=== PATIENT | female | born 1990 | race Asian ===

== ENCOUNTER 2021-10-27 13:05 | Emergency (ER) | payer BC ==
[~2021-10-27] VITALS: Ht 160 cm; Wt 71.2 kg
[2021-10-27 13:48] VITALS: BP 114/73
[2021-10-27] MEDS ORDERED: LEXAPRO 10 MG T10 M1 PO (13:50)
--- NOTE | 2021-10-27 21:23 | NUR ---
PATIENT CALLED AT 2101 AT [phone] TO GIVE POSITIVE COVID RESULTS. MESSAGE LEFT FOR A RETURN CALL TO THIS ER.
--- NOTE | 2021-10-27 23:54 | NUR ---
[facility] CALLED CRITICAL RESULT TO THIS PATTERNMAKER SAMPLE @ 2015, 10/27/21. RESULT- COVID POSITIVE.
--- NOTE | 2021-10-28 05:15 | NUR ---
PT CALLED RE COVID TEST RESULTS. INFORMED PT THAT HER COIVD TEST WAS POSITIVE. PROVIDED EDUCATION REGARDING QUARANTINE AND HOME TREATMENT OF SYMPTOMS. S&S TO RETURN TO ER. PT INQUIRED ABOUT HER CHILDREN AT HOME WITH HER, RECOMENDED PT CALL THEIR BRAKE RELINER IN THE AM. WILL PRINT OUT TEST RESULTS AND WORK NOTE FOR PT TO GEOTHERMAL HVAC TECHNICIAN.
== END 2021-10-27 14:36 | disposition home or self-care (01) ==
LOC: ER 13:05
PROVIDERS: Nurse Practitioner
DX: U07.1 COVID-19 (principal); J02.9 Acute pharyngitis, unspecified; Z79.899 Other long term (current) drug therapy

== ENCOUNTER 2021-11-03 21:27 | Inpatient (IN) | payer BC ==
[~2021-11-03] VITALS: Ht 160 cm; Wt 70.8 kg
[~2021-11-03 21:27] MED LIST: LEXAPRO 10 MG T10 M1 PO
[2021-11-03 21:40] VITALS: BP 86/65
[2021-11-03 22:26] LABS: ABSOLUTE NEUTROPHILS 4.4 thou/uL (1.4-8.2); BASOPHILS 0.6 % (0.0-2.0); EOSINOPHILS 0.1 % (0.0-3.0); HEMATOCRIT 46.3 % (37.0-47.0); HEMOGLOBIN 15.6 gm/dL (12.0-15.0); LYMPHOCYTES 24.6 % (24.0-44.0); MCH 31.5 pg (26.0-34.0); MCHC 33.6 g/dL (28.0-37.0); MCV 93.8 fL (80.0-100.0); MONOCYTES 8.4 % (1.0-8.0); PLATELET COUNT 199 thou/uL (150-400); POLYS 66.3 % (36.0-66.0); RBC 4.94 mil/uL (4.20-5.00); RDW 12.5 % (10.5-14.5); WBC 6.7 thou/uL (4.0-11.0)
[2021-11-03 22:36] LABS: CALCIUM 9.1 mg/dL (8.5-10.1); CREATININE 1.1 mg/dL (0.6-1.0); POTASSIUM 3.5 mmol/L (3.5-5.1)
[2021-11-03 22:40] LABS: APTT 29.9 Seconds (24.5-32.8); INR 0.99; PROTIME 10.8 Seconds (10.5-12.1)
[2021-11-03 22:46] LABS: ALBUMIN 3.9 g/dL (3.4-5.0); TOTAL BILIRUBIN 0.4 mg/dL (0.2-1.0); TOTAL PROTEIN 8.9 g/dL (6.4-8.2)
[2021-11-04 02:55] LABS: HEMATOCRIT 36.4 % (37.0-47.0); MCH 31.5 pg (26.0-34.0); MCHC 33.9 g/dL (28.0-37.0); MCV 92.8 fL (80.0-100.0); RBC 3.92 mil/uL (4.20-5.00); RDW 12.1 % (10.5-14.5); WBC 4.6 thou/uL (4.0-11.0)
[2021-11-04 03:05] LABS: HEMOGLOBIN 12.3 gm/dL (12.0-15.0)
[2021-11-04 03:48] LABS: CALCIUM 7.6 mg/dL (8.5-10.1); CREATININE 0.8 mg/dL (0.6-1.0); POTASSIUM 4.2 mmol/L (3.5-5.1)
--- NOTE | 2021-11-04 08:51 | EKG ---
[address] [address] ELECTROCARDIOGRAM REPORT Name: SIMI CHISHOLM Room #: 170-7 ADM IN M.R.#: [id number] Admission: 11/03/21 Attend Phys: Vinita Lewis MD Discharge: Date of : 89 Report #: [id number] [facility] ED Test Date: 2021-11-03 Test Time: 22:33:09 Pat Name: SIMI CHISHOLM Department: Room: 170 Gender: F Frozen Pie Maker: demetrio : 1990 Requested By: Mumtaz Nuñez Order Number: [id number] MD: Adria Evans Measurements Intervals Pegram Rate: 135 P: 43 FL: 130 QRS: 58 QRSD: 66 T: 4 QT: 272 QTc: 408 Interpretive Statements Sinus tachycardia No previous ECG available for comparison Electronically Signed On 11-04-2021 8:51:33 [employer] INST[employer]ER by Adria Evans [email or web address] <ELECTRONICALLY SIGNED> By: Adria Evans MD, [facility] 11/04/21 0851 [id number] Adria Evans MD, FACC /EPI
[2021-11-04 09:46] LABS: URINE BILIRUBIN NEGATIVE (Negative); URINE BLOOD TRACE (Negative); URINE CLARITY CLEAR; URINE COLOR YELLOW; URINE GLUCOSE-RANDOM* NEGATIVE (Negative); URINE KETONES TRACE (Negative); URINE LEUKOCYTES-REFLEX NEGATIVE (Negative); URINE NITRITE-REFLEX NEGATIVE (Negative); URINE PROTEIN (DIPSTICK) NEGATIVE (Negative); URINE SPECIFIC GRAVITY 1.025 (1.005-1.035); URINE UROBILINOGEN 0.2 E.U./dl (0.2-1.0)
[2021-11-04 09:51] LABS: ICTOTEST (BILI CONFIRMATORY) Negative (Negative)
[2021-11-04 11:30] VITALS: BP 140/80
[2021-11-04 16:30] VITALS: BP 110/43
[2021-11-04 21:30] VITALS: BP 108/75
[2021-11-04 23:01] VITALS: BP 108/68
--- NOTE | 2021-11-05 03:12 | NUR ---
ADMISSION: PT ARRIVED ON UNIT AT APPROX 2130. PT IS ALERT & ORIENTED X 4 AND IS CALM AND COOPERATIVE. CURRENTLY ON RA AND O2 SATS ARE 95-97%. VSS AFEBRILE. PT HAD SOME MILD PAIN AND HAD C/O OF NAUSEA. ADMINISTERED PAIN AND ANTIEMETICS PRN. SBA TO BSC. SHE HAS DIZZINESS WHEN GETTING UP. PT IS ABLE TO MAKE NEEDS KNOWN. IV ABX & FLUIDS RUNNING. CARE PLAN IN PLACE AND INTERVENTIONS SET. WILL CONTINUE TO MONITOR.
[2021-11-05 04:34] VITALS: BP 97/69
[2021-11-05 05:40] LABS: ALBUMIN 2.6 g/dL (3.4-5.0); ANION GAP 10 mmol/L (7-16); BUN 9 mg/dL (7-18); CALCIUM 7.4 mg/dL (8.5-10.1); CHLORIDE 110 mmol/L (98-107); CO2 23 mmol/L (21-32); CREATININE 0.7 mg/dL (0.6-1.0); DIRECT BILIRUBIN < 0.1 mg/dL (<0.1-0.2); GLUCOSE 106 mg/dL (74-106); PHOSPHORUS 3.3 mg/dL (2.5-4.9); POTASSIUM 3.5 mmol/L (3.5-5.1); SGOT 20 U/L (15-37); SGPT 17 U/L (30-65); SODIUM 143 mmol/L (136-145); TOTAL BILIRUBIN 0.3 mg/dL (0.2-1.0)
[2021-11-05 08:00] VITALS: BP 99/64
[2021-11-05 11:21] VITALS: BP 99/67
--- NOTE | 2021-11-05 11:48 | HC ---
[facility] [place] [address] CONSULTATION Name: SIMI CHISHOLM Room #: 354-P ADM IN M.R.#: [id number] Admission: 11/03/21 Attend Phys: Wenceslao Arroyo MD Discharge: Date of : 89 Report #: [id number] THIS REPORT FOR: cc: NO FAMILY PHYSICIAN or PCP NO FAMILY PHYSICIAN or PCP David Sullivan MD ~ DATE OF SERVICE: 11/04/2021 INFECTIOUS DISEASE CONSULTATION ATTENDING PHYSICIAN: Dr. Lewis. REASON FOR EVALUATION: COVID-19, complicated by pneumonitis. HISTORY OF PRESENT ILLNESS: Chart reviewed. The patient examined. This is a 30-year-old woman with history of anxiety, depression, who apparently has been ill for a number of days. She tested positive for COVID-19 on 10/27/2021 and had significant difficulty until latter part of last week, developed some increasing cough and dyspnea at times. Subsequently, developed some nausea, emesis, and diarrhea, in spite of her efforts to drink fluids she was unable to that prompted her presentation to the Emergency Room. Initial CBC was unremarkable. Negative test. Elevated lactic acid at 2.4 initially. Procalcitonin 0.05. Chest x-ray showed bilateral infiltrates consistent with COVID pneumonitis. Blood cultures collected at time of admission are sterile thus far. Urinalysis was generally unremarkable. She had initial temperature of 104, pulse of 151, blood pressure of 86/65. She was resuscitated. Vitals are much improved with a pulse of 73 and blood pressure of 140/80. She was treated with azithromycin, ceftriaxone, and given corticosteroids. Currently, she is not requiring supplemental oxygen. Ceftriaxone and azithromycin. PAST MEDICAL HISTORY: Anxiety and depression. SOCIAL HISTORY: Has 2 children. Nonsmoker, no ethanol, no illicit drug use. FAMILY HISTORY: Noncontributory. REVIEW OF SYSTEMS: Otherwise, unremarkable. PHYSICAL EXAMINATION: GENERAL: Alert, cooperative. She is in mild to moderate distress. She is generally lucid. VITAL SIGNS: Temperature most recently 100.5, pulse 73, respirations 30, blood pressure 140/80. SKIN: Warm, dry, no rashes. HEENT: Normocephalic. Extraocular muscles intact. NECK: Supple. [facility] [address] [place] [address] CONSULTATION Name: SIMI CHISHOLM Room #: [address] [place] [address] IN M.R.#: [id number] Admission: 11/03/21 Attend Phys: Wenceslao Arroyo MD Discharge: Date of : 89 Report #: [id number] LUNGS: Few scattered coarse breath sounds at the bases. HEART: Regular. I do not appreciate any murmur. ABDOMEN: Soft, nontender. EXTREMITIES: No cyanosis or edema. GENITOURINARY AND RECTAL: Deferred. LABORATORY DATA: Urinalysis is unremarkable. Blood cultures sterile thus far. Electrolytes: Sodium 142, potassium 4.2, chloride 108, bicarbonate is 22, anion gap of 12, BUN and creatinine 12 and 0.8. Estimated GFR of 85. Lactic acid 0.8. CBC: White count of 4.6, H and H 12.3 and 36.4, platelets of 149. ASSESSMENT AND PLAN: COVID-19 infection, complicated by pneumonitis. At this point, she has marginal saturations, otherwise not required supplemental oxygen. She has quite high-grade fevers, may be indicative of a superinfection with a secondary bacterial pneumonitis. We will continue empiric antibiotics, ceftriaxone and azithromycin. I think it is reasonable to start remdesivir given the tenuous nature of her situation. There is no particular contraindication in addition to corticosteroids and vitamins. She may not need a full 5-day course. We will see how she does over the course of the next 2-3 days. <ELECTRONICALLY SIGNED> By: David Sullivan MD 11/05/21 1148 [id number] [id number] David Sullivan MD /nt
[2021-11-05 16:29] VITALS: BP 105/68
--- NOTE | 2021-11-05 17:06 | NUR ---
PT ADMITTED RELATED COVID-19, HYPOTENSION, AND PNEUMONIA. CM REVIEWED CHART AND SPOKE WITH CARE TEAM. CM SPOKE TO PT THIS DAY VIA PHONE R/T ENHANCED ISOLATION. CM ROLE INTRODUCED. CLARIFIED PHONE NUMBER FOR LATRICIA GOMEZ [phone]. PT REPORTS COMMERCIAL REAL ESTATE MANAGER SHE WAS LIVING AT HOME WTIH 2 KIDS IN AN APARTMENT. SHE REPORTS COMMERCIAL REAL ESTATE MANAGER BEING INDEPENDENT WITH ALL MOBILITY AND ADLS. GOAL IS TO RETURN HOME ONCE MEDICALLY STABLE. NO CONCERNS WITH NEEDS VOICED ONCE DISCHARGE AT THIS TIME. WILL FOLLOW THROUGH STAY AND ARRANGE IF INDICATED. CM FOLLOWING REGARDING DC PLANNING.
[2021-11-05 19:26] VITALS: BP 110/55
--- NOTE | 2021-11-05 19:36 | NUR ---
RN ASSUMED PT'S CARE AT 0700-1900PM, PT IS A&OX4, PT IS ON ROOM AIR, PT'S VS ARE STABLE, PT'S N/V HAS IMPROVED, BUT PT STILL HAS DIARRHEA , PT IS CONTINUING IV FLUID AND ABX, PT DENIES PAIN AT DAY SHIFT.
--- NOTE | 2021-11-05 23:39 | NUR ---
PROGRESS PT A/O X4. UP AD JERSON TO BSC. LUNGS CLEAR BUT DIMINISHED, OCCASIONAL NON-PRODUCTIVE COUGH NOTED. PT REPORTS NAUSEA SUBSIDING, DIARRHEA CONTINUES HAD A FEW STOOLS DURING DAY IMMODIUM GIVEN WITH EVENING MEDS. HAD A SNACK OF ICE CREAM AND JEZ CRACKERS TOLERATED WELL. IV ANTIBIOTICS ADMINISTERED ORDERED CONTINUE POC.
[2021-11-06 02:45] VITALS: BP 91/51
[2021-11-06 07:06] LABS: ALBUMIN 2.4 g/dL (3.4-5.0); ANION GAP 11 mmol/L (7-16); BUN 11 mg/dL (7-18); CALCIUM 7.3 mg/dL (8.5-10.1); CHLORIDE 111 mmol/L (98-107); CO2 22 mmol/L (21-32); CREATININE 0.6 mg/dL (0.6-1.0); DIRECT BILIRUBIN < 0.1 mg/dL (<0.1-0.2); GLUCOSE 93 mg/dL (74-106); PHOSPHORUS 3.1 mg/dL (2.6-4.7); SGOT 17 U/L (15-37); SGPT 18 U/L (14-59); SODIUM 144 mmol/L (136-145); TOTAL BILIRUBIN 0.2 mg/dL (0.2-1.0); TOTAL PROTEIN 5.6 g/dL (6.4-8.2)
[2021-11-06 07:50] VITALS: BP 97/62
[2021-11-06 11:22] VITALS: BP 92/60
[2021-11-06 15:35] VITALS: BP 93/58
--- NOTE | 2021-11-06 19:42 | NUR ---
RN ASSUMED PT'S CARE AT 0700-1900PM, PT IS A&OX4, PT IS ON ROOM AIR, PT'S VS ARE STABLE, PT 'S N/V AND DIARRHEA HAVE IMPROVED.
[2021-11-06 20:19] VITALS: BP 101/65
[2021-11-07 04:13] VITALS: BP 103/75
[2021-11-07 05:06] LABS: ALBUMIN 2.6 g/dL (3.4-5.0); ANION GAP 8 mmol/L (7-16); BUN 12 mg/dL (7-18); CALCIUM 7.7 mg/dL (8.5-10.1); CHLORIDE 110 mmol/L (98-107); CO2 25 mmol/L (21-32); CREATININE 0.7 mg/dL (0.6-1.0); DIRECT BILIRUBIN < 0.1 mg/dL (<0.1-0.2); GLUCOSE 101 mg/dL (74-106); PHOSPHORUS 3.1 mg/dL (2.6-4.7); POTASSIUM 3.7 mmol/L (3.5-5.1); SGOT 22 U/L (15-37); SGPT 23 U/L (14-59); SODIUM 143 mmol/L (136-145); TOTAL BILIRUBIN 0.3 mg/dL (0.2-1.0)
--- NOTE | 2021-11-07 05:36 | NUR ---
PROGRESS PT A/O X4, UP AD JERSON VSS. LUNGS CLEAR AND PT ON ROOM AIR. DENIES PAIN. VOIDING QS AND NAUSEA, VOMITING AND DIARRHEA RESOLVED NO EPISODES THIS SHIFT. IVF'S CONTINUE PT TOLERATING DIET PT HOES TO DC HOME TODAY.
[2021-11-07 07:24] VITALS: BP 76/58
[2021-11-07] MEDS ORDERED: PREDNISONE 20 M20 M1 PO (10:12)
[2021-11-07] MEDS ORDERED: MUCINEX600 MG PO (10:12)
[2021-11-07] MEDS ORDERED: LOPERAMIDE 2 MG2 M1 PO (10:12)
[2021-11-07] MEDS ORDERED: VITAMIN D325 MC2 PO (10:12)
[2021-11-07 15:07] VITALS: BP 76/58
--- NOTE | 2021-11-07 15:56 | NUR ---
RN ASSUMED PT'S CARE AT 0700AM, PT IS A&OX4, PT 'S N/V AND DIARRHEA HAVE IMOROVED, PT'S VS ARE STABLE, PT IS CONTINUNG TREATING COVID MEDICATIONS, PT GETS UP TO BATH ROOM WITHOUT ASSIST, PT DENIES PAIN AND SOB, RN RECEIVED ORDER TO DC PT TODAY, PT 'S FRIEND WILL MANDARIN CHINESE TEACHER PT TO HOME ABOUT 1800PM.
--- NOTE | 2021-11-07 19:45 | NUR ---
PT UNDERSTANDS DC TEACHING WELL, PT'S FRIEND WET PROCESS TECHNICIAN PT TO HOME AT 1830PM.
== END 2021-11-07 18:50 | disposition home or self-care (01) | DRG 177 ==
LOC: ER 21:27 → 3W 23:30 → EROBS 23:30 → 3W 11-04 21:35
PROVIDERS: Emergency Medicine; Nurse Practitioner Family; Specialist; ADMIT Hospitalist; ATTEND Hospitalist
PROC: XW033E5 Introduction of Remdesivir Anti-infective into Peripheral Vein, Percutaneous Approach, New Technology Group 5 (ICD-10-PCS; principal; 2021-11-04)
DX: U07.1 COVID-19 (principal); J12.82 Pneumonia due to coronavirus disease 2019; F41.9 Anxiety disorder, unspecified; F32.9 Major depressive disorder, single episode, unspecified; I95.9 Hypotension, unspecified
CPT/HCPCS: 10879